=== PATIENT | female | born 1960 | race Caucasian/White ===

== ENCOUNTER 2017-12-25 08:59 | Emergency (ER) | payer OTHER ==
[~2017-12-25] VITALS: Ht 162.6 cm; Wt 81.7 kg
--- NOTE | ~2017-12-25 | EKG ---
[address] [address] ELECTROCARDIOGRAM REPORT Name: ROHINI AGLVEZ Room #: [facility]#: [id number] Admission: 12/25/17 Attend Phys: Discharge: 12/25/17 Date of : 56 Report #: [id number] THIS REPORT FOR: //name// [facility] ED Test Date: 2017-12-25 Test Time: 09:14:18 Pat Name: ROHINI GALVEZ Department: Room: Gender: F Space Officer: [facility] : 1960 Requested By: Maria Luisa Castellon Order Number: [id number] MD: Daniel Dc Measurements Intervals Dwight Rate: 58 P: 70 GA: 158 QRS: 36 QRSD: 90 T: 37 QT: 451 QTc: 444 Interpretive Statements Sinus rhythm Compared to ECG 01/31/2010 15:16:39 No significant changes Electronically Signed On 12-25-2017 17:46:44 CDT by Daniel Dc [email or web address] <ELECTRONICALLY SIGNED> By: Daniel Dc MD 12/25/17 1746 0914 3 Daniel Dc MD /ROSMERY
[~2017-12-25 08:59] MED LIST: FLEXERIL PO; MOTRIN 600 MG600 M1 OR; NORCO 5-325 TA1 EACH PO; SUPPLEMENTS
[2017-12-25] MEDS ORDERED: NORVASC5 MG PO (09:12)
[2017-12-25] MEDS ORDERED: PAXIL10 MG PO (09:13)
[2017-12-25 09:34] LABS: BASOPHILS 0.4 % (0.0-2.0); EOSINOPHILS 2.3 % (0.0-3.0); HEMATOCRIT 44.1 % (37.0-47.0); LYMPHOCYTES 25.4 % (24.0-44.0); MCH 31.8 pg (26.0-34.0); MCHC 34.1 g/dL (28.0-37.0); MCV 93.2 fL (80.0-100.0); PLATELET COUNT 220 thou/uL (150-400); POLYS 63.9 % (36.0-66.0); RBC 4.73 mil/uL (4.20-5.00); RDW 13.6 % (10.5-14.5); WBC 9.4 thou/uL (4.0-11.0)
[2017-12-25 09:37] LABS: ANION GAP 9 mmol/L (7-16); BUN 8 mg/dL (7-18); CALCIUM 8.9 mg/dL (8.5-10.1); CHLORIDE 107 mmol/L (98-107); CO2 23 mmol/L (21-32); CREATININE 0.9 mg/dL (0.6-1.0); GLUCOSE 144 mg/dL (74-106); POTASSIUM 3.2 mmol/L (3.5-5.1); SODIUM 139 mmol/L (136-145)
[2017-12-25 09:45] LABS: TROPONIN-I <0.06 ng/mL (<0.06)
[2017-12-25] MEDS ORDERED: MOBIC7.5 MG PO (12:04)
[2017-12-25] MEDS ORDERED: NORFLEX100 MG PO (12:04)
[2017-12-25 12:21] VITALS: BP 130/76
== END 2017-12-25 12:24 | disposition home or self-care (01) ==
LOC: ER 08:59
PROVIDERS: Nurse Practitioner Family
DX: S50.12XA Contusion of left forearm, initial encounter (principal); S60.222A Contusion of left hand, initial encounter; S50.812A Abrasion of left forearm, initial encounter; S29.9XXA Unspecified injury of thorax, initial encounter; G89.29 Other chronic pain; I10 Essential (primary) hypertension; B19.20 Unspecified viral hepatitis C without hepatic coma; F17.210 Nicotine dependence, cigarettes, uncomplicated; V49.49XA Driver injured in collision with other motor vehicles in traffic accident, initial encounter; Y93.89 Activity, other specified; Y92.410 Unspecified street and highway as the place of occurrence of the external cause; Y99.8 Other external cause status